=== PATIENT | male | born 1985 | race Caucasian/White ===

== ENCOUNTER 2016-10-24 00:26 | Emergency (ER) | payer OTHER ==
[~2016-10-24] VITALS: Ht 185.4 cm; Wt 113.7 kg
[~2016-10-24 00:26] MED LIST: MECL-105 PO; METH4TAB27 PO
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
[2016-10-24] MEDS ORDERED: HYDR-3811 PO (00:48)
[2016-10-24] MEDS ORDERED: CLIN-78 PO (00:48)
[2016-10-24] MEDS ORDERED: BUPIVACAINE 0.5% (MARCAINE) 10 ML VIAL INJ ONE (00:55)
[2016-10-24] MEDS ORDERED: HYDROmorphone 1 MG/ML (DILAUDID) SYRINGE IV ONE (00:55)
[2016-10-24] MEDS ORDERED: ONDANSETRON 2 MG/ML (Z0FRAN) 2 ML VIAL IV ONE (00:55)
[2016-10-24] MEDS ORDERED: LIDOCAINE 2% (XYLOCAINE) 20 ML VIAL INJ ONE (00:55)
[2016-10-24] MEDS ORDERED: methylPREDNISolone 125 MG (Solu-MEDROL) VIAL IV ONE (00:55)
[2016-10-24] MEDS ORDERED: cefTRIAXone SODIUM 1,000 MG in SODIUM CHLORIDE 50 ML IV ONE (00:55)
[2016-10-24] MEDS ORDERED: SODIUM CHLORIDE FLUSH 10 ML SYR IV PRN (00:55)
[2016-10-24 01:17] LABS: BASOPHILS % (AUTO) 0 % (0-2); EOSINOPHILS # (AUTO) 0.1 10^3uL; EOSINOPHILS % (AUTO) 2 % (0-4); MEAN CORPUSCULAR HEMOGLOBIN 30.9 PG (26.0-34.0); MEAN CORPUSCULAR VOLUME 86 FL (80-100); MEAN PLATELET VOLUME 10.1 FL (6.0-9.5); MONOCYTES # (AUTO) 0.9 X10^3; MONOCYTES % (AUTO) 13 % (3-11); NEUTROPHILS # (AUTO) 3.6 X10^3; NEUTROPHILS % (AUTO) 55 % (51-67); PLATELET COUNT 176 10^3uL (150-450); WHITE BLOOD COUNT 6.58 10^3uL (4.0-11.0)
[2016-10-24 01:21] LABS: MEAN CORPUSCULAR HGB CONC 35.7 g/dL (31.0-37.0)
[2016-10-24 01:29] LABS: ALBUMIN 4.4 g/dL (3.4-5.0); ANION GAP 14.4 MEQ/L (3-15); CALCULATED IONIZED CALCIUM 3.6 mg/dL (3.8-4.6); TOTAL PROTEIN 7.7 g/dL (6.4-8.5)
[2016-10-24] MEDS ORDERED: ERTAPENEM 1 GM IM ONE (01:45)
[2016-10-24] MEDS ORDERED: HYDROmorphone 1 MG/ML (DILAUDID) SYRINGE IM ONE (01:45)
[2016-10-24] MEDS ORDERED: predniSONE 20 MG (DELTASONE) TABLET PO ONE (01:45)
[2016-10-24] MEDS ORDERED: ONDANSETRON 4 MG (ZOFRAN) ORAL DISSOLVE TAB PO ONE (01:45)
[2016-10-24] MEDS ORDERED: METH4TAB27 PO (02:03)
--- NOTE | 2016-10-24 02:20 | NUR ---
IV was not obtained, all IV medications discontinued, Medications were pulled up and ready to admin, IV medication were wasted. Patient refused any Dilaudid, not given but not pulled up, able to return to bin, zofran ODT also refused by patient, not opened, returned to [facility].
[2016-10-24] MEDS ORDERED: LIDOCAINE PF 1% (XYLOCAINE) 2 ML VIAL INJ ONE (02:25)
[2016-10-24 02:53] VITALS: BP 158/85
== END 2016-10-24 02:49 | disposition home or self-care (01) ==
LOC: ED 00:29
DX: K04.7 Periapical abscess without sinus (principal)
CPT/HCPCS: 36415; 41800; 80053; 85025; 86140; 96372; 99282; J1335; J2001; 40800; 99283